=== PATIENT | male | born 1985 | race Caucasian/White ===

== ENCOUNTER 2017-08-01 21:06 | Emergency (ER) | payer MEDICAID | END 2017-08-02 00:18 | disposition home or self-care (01) | LOC: FTE 08-02 00:18 | DX: J18.9 Pneumonia, unspecified organism (principal) | CPT/HCPCS: 99284; Z7502 ==

== ENCOUNTER 2017-12-13 20:14 | Emergency (ER) | payer MEDICAID ==
[2017-12-13] MEDS: LIDOCAINE/MYLANTA 40 ML BTL PO (21:48)
== END 2017-12-13 22:06 | disposition home or self-care (01) ==
LOC: FTE 20:14
DX: R12 Heartburn (principal)
CPT/HCPCS: 99283; Z7502

== ENCOUNTER 2018-06-18 22:01 | Emergency (ER) | payer SELFPAY, MEDICAID | END 2018-06-18 23:11 | disposition left against medical advice (07) | LOC: FTE 22:01 | DX: Z53.21 Procedure and treatment not carried out due to patient leaving prior to being seen by health care provider (principal) ==